=== PATIENT | male | born 1955 | race Hispanic/Latino ===

== ENCOUNTER 2018-04-24 14:28 | Emergency (ER) | payer BC | END 2018-04-24 15:14 | LOC: SCSER 14:28 | DX: M25.562 Pain in left knee (principal); M25.561 Pain in right knee | CPT/HCPCS: 99283 ==

== ENCOUNTER 2018-04-24 15:43 | Emergency (ER) | payer BC ==
[2018-04-24] MEDS ORDERED: Ketorolac Tromethamine 30 MG/ML VIAL ONE (16:25)
--- NOTE | 2018-04-24 16:46 | RAD ---
LEFT KNEE FOUR VIEWS: 04/24/18 HISTORY: Bilateral knee pain. FINDINGS/IMPRESSION: No fracture, dislocation, or bony destruction seen. POS: [facility]
--- NOTE | 2018-04-24 16:49 | RAD ---
RIGHT KNEE FOUR VIEWS: 04/24/18 HISTORY: Knee pain. FINDINGS: Joint spaces are preserved. Mild osteophytosis. Articular surface irregularity involves the medial fe moral condyle, with a 0.9 cm cortical defect. Small irregular calcification lies adjacent to the late ral tibial spine. Small fluid distention suprapatellar bursa. No acute fracture, dislocation or aggre ssive osseous erosion. IMPRESSION: Mild osteoarthritic changes. Small cortical defect articular surface medial femoral condyle suggestin g osteochondral defect. The intracapsular ossification adjacent to the lateral tibial spine may refle ct an ossific avulsion of the posterior cruciate ligament or the loose body from the medial femoral c ondyle defect. If symptoms warrant, orthopedic consultation could be helpful. POS: [facility]
== END 2018-04-24 17:11 | disposition home or self-care (01) ==
LOC: ERS 15:43
DX: M17.0 Bilateral primary osteoarthritis of knee (principal)
CPT/HCPCS: 96372; 99283; J1885